=== PATIENT | female | born 1965 | race Caucasian/White ===

== ENCOUNTER → 2023-05-08 15:10 | Outpatient (REF) | payer OTHER, SELFPAY | LOC: HWRAD 15:10 | PROVIDERS: ATTENDING PHYSICIAN Obstetrics & Gynecology Gynecology; FAMILY PHYSICIAN Family Medicine | DX: Z12.31 Encounter for screening mammogram for malignant neoplasm of breast (principal); Z78.0 Asymptomatic menopausal state | CPT/HCPCS: 77063; 77067; 77080 ==

== ENCOUNTER 2023-10-22 08:23 | Emergency (ER) | payer OTHER, SELFPAY ==
[2023-10-22 08:27] VITALS: BP 143/81
--- NOTE | 2023-10-22 08:39 | ED.GENMED ---
History of Present Illness
<Megha Pagan SPOOL SALVAGER - Last Filed: 10/22/23 16:31>
General
Chief Complaint: Fainting/Passed Out
Source: patient
Exam Limitations: none
Time Seen by Provider: 10/22/23 08:34
Nursing documentation reviewed up to this point in time: agreed with
History of Present Illness
History of Present Illness:
58-year-old female with no clinically significant past medical history other than currently taking Cipro 250 BID for urinary tract infection, has had total of 4 doses, states she felt well this a.m. , got ready for work, was standing in kitchen, ate
1/2 banana, felt sudden onset lightheaded, hot and sweaty, sat down. with her states she sat, her elbows were flexed, hands were shaky, then her head leaned back and her arms fell straight to her sides. He went and shook her and called her
name, she leaned forward and started to snore. Episode lasted about 15 seconds. He then helped her up and she walked to the sofa and layed down. Called PCP Dr. Roman who recommended she come here. She felt nauseous afterwards but denies feeling
nausea now. States she feels 'a lot better' now.
Denies H/A, CP, SOB, abdominal pain. Denied d/c, f/c
No recent travel, no known sick contacts
Past History
<Megha Pagan SPOOL SALVAGER - Last Filed: 10/22/23 16:31>
Past History
ED Past Medical History: Psychiatric (panic attacks has PRN Xanax and Propranolol, last needed about 2 weeks ago) and Other (Back and neck pain, interstitial cystitis)
ED Past Surgical History: and Orthopedic
Social History
Tobacco: Non-smoker
Alcohol: None
Drug: None
Personal:
Living: with family
Review of Systems
<Megha Pagan SPOOL SALVAGER - Last Filed: 10/22/23 16:31>
Review of Systems
Allergies reviewed?: Yes
All Other Systems: ROS reviewed and negative except as documented in HPI and ROS
Constitutional: Denies fever, fatigue or chills
EENT: Denies sore throat
Respiratory: Denies trouble breathing
Cardiac: Reports diaphoresis and syncope; Denies chest pain or palpitations
ABD/GI: Reports nausea; Denies abdominal pain, vomiting, diarrhea, constipated, bloody stools, black stools or anorexia
: Denies dysuria, frequency, flank pain, difficulty voiding or urgency
Musculoskeletal: Reports no symptoms
Skin: Reports no symptoms
Neurological: Reports no symptoms
Phy Exam
<Megha Pagan SPOOL SALVAGER - Last Filed: 10/22/23 16:31>
Physical Exam
Physical Exam:
GENERAL: No acute distress. A&Ox3.
CONSTITUTIONAL: Afebrile.
EYES: PERRL, conjunctivae normal
ENMT: moist mucus membranes, Pharynx nl
RESPIRATORY: Regular respirations, nonlabored, lungs clear.
CARDIOVASCULAR: Regular rate and rhythm, no murmurs, no rubs.
GI: Soft, nontender, normal BS
MUSCULOSKELETAL: Moves with ease. Well perfused.
SKIN: Warm, dry, pink
PSYCH: Normal mood and affect. Well kept, interactive and appropriate
NEUROLOGIC: Awake, alert and oriented. No focal neurological deficits. Strength equal throughout. Ambulates well with steady gait.
Course
<Megha Pagan, SPOOL SALVAGER - Last Filed: 10/22/23 16:31>
Orders/Labs/Results
Orders:
Orders
10/22/23 08:30
Electrocardiogram (*1) Urgent
Reason for Study: Syncope
10/22/23 08:31
EKG- Treatment ONCE
10/22/23 09:05
Complete Blood Count/With Diff Urgent
10/22/23 09:20
Renal & Bladder US [US Renal With Bladder] Urgent
Comment:
Reason For Exam: syncope, UTI
10/22/23 09:21
0.9% Sodium Chloride 1000 ml [Nss] 1,000 ml IV BOLUS
10/22/23 09:41
Comprehensive Metabolic Panel Urgent
Abnormal Lab Results
10/22/23
09:41
Chloride 108 H mmol/L
(98-107)
Glucose 102 H mg/dl
(70-99)
Total Protein 6.0 L g/dl
(6.3-8.2)
10/22/23 09:05
10/22/23 09:41
Vital Signs
Initial and Last Documented VS:
Initial Vital Signs
Temp Pulse Resp BP Pulse Ox
98.0 F 68 16 143/81 100
10/22/23 08:27 10/22/23 08:27 10/22/23 08:27 10/22/23 08:27 10/22/23 08:27
Last Documented Vital Signs
Temp Pulse Resp BP Pulse Ox
98.0 F 66 16 116/77 98
10/22/23 08:27 10/22/23 11:36 10/22/23 11:36 10/22/23 11:36 10/22/23 11:36
Logging Engineer consulted with Physician
Logging Engineer consulted with physician?: Yes
Name of Physician Consulted: Latrell
<Efra Sams MD - Last Filed: 10/22/23 09:44>
Orders/Labs/Results
Orders:
Orders
10/22/23 08:30
Electrocardiogram (*1) Urgent
Reason for Study: Syncope
10/22/23 08:31
EKG- Treatment ONCE
10/22/23 09:05
Complete Blood Count/With Diff Urgent
10/22/23 09:20
Renal & Bladder US [US Renal With Bladder] Urgent
Comment:
Reason For Exam: syncope, UTI
10/22/23 09:21
0.9% Sodium Chloride 1000 ml [Nss] 1,000 ml IV BOLUS
10/22/23 09:41
Comprehensive Metabolic Panel Urgent
Abnormal Lab Results
10/22/23
09:41
Chloride 108 H mmol/L
(98-107)
Glucose 102 H mg/dl
(70-99)
Total Protein 6.0 L g/dl
(6.3-8.2)
10/22/23 09:05
10/22/23 09:41
Vital Signs
Initial and Last Documented VS:
Initial Vital Signs
Temp Pulse Resp BP Pulse Ox
98.0 F 68 16 143/81 100
10/22/23 08:27 10/22/23 08:27 10/22/23 08:27 10/22/23 08:27 10/22/23 08:27
Last Documented Vital Signs
Temp Pulse Resp BP Pulse Ox
98.0 F 66 16 116/77 98
10/22/23 08:27 10/22/23 11:36 10/22/23 11:36 10/22/23 11:36 10/22/23 11:36
<Megha Pagan SPOOL SALVAGER - Last Filed: 10/22/23 16:31>
MDM/Problems Addressed
Differential Diagnosis Includes:
vasovagal, dehydration, fluid depletion, UTI, dysrhythmia, PE
MDM/Problems Addressed:
58-year-old female with no clinically significant past medical history other than currently taking Cipro 250 BID for urinary tract infection, has had total of 4 doses, states she felt well this a.m. , got ready for work, was standing in kitchen, ate
1/2 banana, felt sudden onset lightheaded, hot and sweaty, sat down. with her states she sat, her elbows were flexed, hands were shaky, then her head leaned back and her arms fell straight to her sides. He went and shook her and called her
name, she leaned forward and started to snore. Episode lasted about 15 seconds. He then helped her up and she walked to the sofa and layed down. Called PCP Dr. Roman who recommended she come here. She felt nauseous afterwards but denies feeling
nausea now. States she feels 'a lot better' now.
Denies H/A, CP, SOB, abdominal pain. Denied d/c, f/c
No recent travel, no known sick contacts
EKG: NSR
Doubt PE, no risk factors for PE, physical exam is unremarkable, VS normal, asymptomatic now
Doubt cardiac etiology, no hx of, EKG normal, normal QT interval
No recent head trauma, do not suspect neurological cause.
Most likely cause is vasovagal being on Cipro, current UTI, felt faint and sweaty prior to, completely asymptomatic now
Dr. Sams in to evaluate. Recommends renal US, change to Omnicef due to potential for QT prolongation with Fluoroquinolones
9:20 a.m.
CBC normal
CMP normal
11:15 a.m.
Renal US: Radiology report read: No hydronephrosis, suspicious renal lesions or evidence of renal calculus.
Mild urinary bladder wall thickening which may be due to known UTI. No significant postvoid residual volume.
Pt stable for discharge.
Rx for Omnicef sent to pt pharmacy
<Megha Pagan SPOOL SALVAGER - Last Filed: 10/22/23 16:31>
*Critical Care Note
Total Time (30-74mins, 75-104mins- exclusive of procedures): Not Applicable
ED Attending Note
<Megha Pagan SPOOL SALVAGER - Last Filed: 10/22/23 16:31>
-
Portions of this chart may have been created with voice recognition software.� Occasional wrong word or��sound alike� substitutions may have occurred due to the inherent limitations of voice recognition software.
<Efra Sams MD - Last Filed: 10/22/23 09:44>
ED Attending Note
Patient seen and examined by attending physician: Yes
I performed the substantive portion of visit, reviewed & personally made and approve the management plan that is documented in note by myself or UMA.: Yes
ED Attending Note:
58-year-old female. Currently being treated for UTI. Had some urinary frequency urgency and hematuria. Started on Cipro 2 days ago. No fever or chills. Had brief flank pain recently. Today she was in the kitchen felt lightheaded sat down and
then passed out with her head slumped backwards and her eyes open per her . She then woke up. Minimal twitching. No postictal period. No tongue biting. She was then lie down. Currently she feels well. No history of same. No history of
syncope or sudden cardiac arrest
On exam patient is nontoxic in no distress. Lungs clear and equal. Heart regular rate and rhythm no murmur. She is warm and dry. She is perfusing well. She has no CVA tenderness. She has no leg swelling or cord.
Impression: Describing vasovagal syncope. Nothing to support arrhythmia issues on her EKG. No QT prolongation. No Brugada syndrome. She is however on Cipro. With the flank pain transiently and hematuria transiently we will get an ultrasound.
However she has no kidney stone symptoms at this time. EKG is stable.
Discharge Plan
Departure
Patient Disposition: Home (Routine Discharge)
Date of Disposition: 10/22/23
Time of Disposition: 11:25
Patient with high blood pressure during this ER visit?: No
Condition: Good
Discharge Problem:
Syncope, non cardiac
Instructions: Syncope (Fainting) (DC)
Prescriptions:
New
cefdinir 300 mg capsule
300 mg PO BID 5 Days Qty: 10 0RF
No Action
tramadol [Ultram] 50 MG tablet
50 mg PO TID PRN (Reason: pain) Qty: 12 0RF
amoxicillin-pot clavulanate 1 TABLET tablet
1 tab PO Q12 Qty: 14 0RF
Referrals:
Efra Roman, DO [Family Provider] - As needed
Activity Restrictions/Additional Instructions:
As we discussed, although there is no indication that your fainting episode is caused by your heart, stop the Cipro due to the possible side effect of prolonging the QT interval on your EKG (your QT interval is normal on today's EKG).
I sent a prescription to your pharmacy for Omnicef to take twice a day for 5 days for your UTI
Drink plenty of fluid.
Interventions
Interventions:
*Risk Screen - Suicide Last Done: 10/22/23 09:00
*General Assessment Last Done: 10/22/23 08:52
*Neglect/Abuse Screening Last Done: 10/22/23 09:00
ED- Fall Risk Assessment Last Done: 10/22/23 08:52
*ED COVID-19 Vaccine History Last Done: 10/22/23 08:52
*Nursing Disposition Last Done: 10/22/23 11:36
ED- Cardiac Assessment Last Done: 10/22/23 08:52
ED- Neurological Assessment Last Done: 10/22/23 08:52
Discharge Date and Time
Discharge Date/Time: 10/22/23 11:35
Print Language: CYPRIOT
[2023-10-22 08:52] VITALS: BMI 26.5
[2023-10-22 08:55] VITALS: BP 122/44
[2023-10-22 09:02] VITALS: BP 116/74
[2023-10-22 09:16] LABS: % Basophils 0.6 % (0-2); % Eosinophils 1.7 % (0-6); % Immature Granulocytes 0.2 % (0-0.5); % Lymphocytes 30.4 % (20.5-51.1); % Monocytes 8.4 % (1.7-9.3); % Neutrophils 58.7 % (42.2-75.2); Absolute Eosinophils 0.1 10^3/uL (0-0.7); Absolute Lymphocytes 1.6 10^3/uL (1.2-3.4); Absolute Monocytes 0.5 10^3/uL (0.1-0.6); Absolute Neutrophils 3.1 10^3/uL (1.4-6.5); Hematocrit 39.8 % (37.0-47.0); Hemoglobin 13.8 g/dL (12.0-16.0); Mean Corp Hgb Conc. 34.7 g/dL (33.0-37.0); Mean Corpuscular Hgb 28.3 pg (27.0-31.0); Mean Corpuscular Volume 81.6 fL (81.0-99.0); Mean Platelet Volume 10.2 fL (7.4-10.4); Nucleated Red Blood Cells % 0 %; Platelet Count 212 10^3/uL (130-400); Red Blood Cell Count 4.88 10^6/uL (4.20-5.40); Red Cell Dist. Width 12.9 % (11.5-14.5); White Blood Cell Count 5.3 10^3/uL (4.8-10.8)
[2023-10-22] MEDS: NSS 1000 IV (09:40)
[2023-10-22 10:00] VITALS: BP 131/86
[2023-10-22 10:00] LABS: ALT (SGPT) 14 U/L (0-35); AST (SGOT) 23 U/L (14-36); Alkaline Phosphatase 67 U/L (38-126); Blood Urea Nitrogen 15 mg/dl (7-17); Carbon Dioxide 25 mmol/L (22-30); Chloride 108 mmol/L (98-107); Estimated Creatinine Clearance 82 ml/min; Glucose 102 mg/dl (70-99); Potassium 3.9 mmol/L (3.5-5.1); Sodium 139 mmol/L (135-145); Total Bilirubin 0.6 mg/dl (0.2-1.3); eGFR > 60.00
[2023-10-22 11:16] VITALS: BP 116/74
[2023-10-22 11:36] VITALS: BP 116/77
--- NOTE | 2023-10-22 11:36 | EDRN ---
Discharge instructions given to patient by Ly IRIZARRY. Ambulated with steady gait to the [facility].
== END 2023-10-22 11:35 | disposition home or self-care (01) ==
LOC: EMR 08:23
PROVIDERS: Registered Nurse; EMERGENCY PHYSICIAN Emergency Medicine; FAMILY PHYSICIAN Family Medicine
DX: R55 Syncope and collapse (principal); R31.9 Hematuria, unspecified; R11.0 Nausea; R61 Generalized hyperhidrosis; N39.0 Urinary tract infection, site not specified; F41.0 Panic disorder [episodic paroxysmal anxiety]; M47.812 Spondylosis without myelopathy or radiculopathy, cervical region; M47.815 Spondylosis without myelopathy or radiculopathy, thoracolumbar region; F41.9 Anxiety disorder, unspecified; Z85.828 Personal history of other malignant neoplasm of skin; Z88.8 Allergy status to other drugs, medicaments and biological substances
CPT/HCPCS: 99284; 96360; 76770; 80053; 85025; 93005

== ENCOUNTER → 2024-05-27 09:34 | Outpatient (REF) | payer OTHER, SELFPAY | LOC: HWWDC 09:34 | PROVIDERS: ATTENDING PHYSICIAN Obstetrics & Gynecology Gynecology; FAMILY PHYSICIAN Family Medicine | DX: Z12.31 Encounter for screening mammogram for malignant neoplasm of breast (principal) | CPT/HCPCS: 77063; 77067 ==

== ENCOUNTER → 2024-09-13 17:22 | Outpatient (REF) | payer OTHER, SELFPAY | LOC: RAD 17:22 | PROVIDERS: ATTENDING PHYSICIAN Physician Assistant Medical; FAMILY PHYSICIAN Family Medicine | DX: M54.50 Low back pain, unspecified (principal); M25.561 Pain in right knee; M25.562 Pain in left knee | CPT/HCPCS: 72110; 73564 ==